=== PATIENT | female | born 1975 | race Two or more races ===

== ENCOUNTER 2022-10-08 14:40 | Emergency (ER) | payer OTHER ==
[~2022-10-08] VITALS: Ht 147.3 cm; Wt 49.6 kg
[2022-10-08] MEDS ORDERED: KETOROLAC TROMETH 60MG/2ML VIAL IM ONE (15:30)
[2022-10-08 15:54] VITALS: BP 132/70
== END 2022-10-08 16:06 | disposition home or self-care (01) ==
LOC: ER 14:40
DX: M54.2 Cervicalgia (principal); R51.9 Headache, unspecified
CPT/HCPCS: 72125; 93005; 96372; 99285; J1885